=== PATIENT | female | born 1955 | race Caucasian/White ===

== ENCOUNTER → 2016-11-29 | Outpatient (CLI) | payer BC | END | disposition home or self-care (01) | LOC: MW.CHFP 09:44 | PROVIDERS: ATTEND Physician Assistant | DX: J32.0 Chronic maxillary sinusitis (principal) | CPT/HCPCS: 87070; 87205 ==

== ENCOUNTER 2017-10-08 15:15 | Emergency (ER) | payer BC ==
--- NOTE | 2017-10-08 15:42 | EDM.PDOC ---
ED HPI GENERAL MEDICAL PROBLEM - General Chief Complaint: Chest Pain Stated Complaint: CHEST PAIN Time Seen by Provider: 10/08/17 15:24 Source of Information: Reports: Patient History Limitations: Reports: No Limitations - History of Present Illness INITIAL COMMENTS - FREE TEXT/NARRATIVE: Presents to the ER reporting chest pain. The patient states that this morning when she got up she did not feel very good but she has been on prednisone for the last 10 days. She said that she feels like she has been "on speed" the last few days from taking it. It was prescribed to help resolve some nodules she had around her mouth after reaction to cosmetic fillers. Once she got to work she noticed some low sternal pain radiating to the epigastric area accompanied by mild nausea and lightheadedness. She was sweaty at the time but that resolved. She has a history of anxiety but that is well controlled with Pristiq. She occasionally takes lorazepam but has not needed to recently. Initially her pain was a 9 on the 1-10 scale but now it is down to about 4. No personal history of cardiac problems. Her mother and father both suffered from congestive heart failure and hypertension. She did have an episode of "inflammation in the zyphoid process" about 14 years ago. Mid-Sternal Chest Pain Score (Numeric/FACES): 6 - Related Data Allergies Allergy/AdvReac Type Severity Reaction Status Date / Time aspirin [From Percodan] Allergy Nausea and Verified 10/08/17 15:25 Vomiting oxycodone HCl [From Percodan] Allergy Nausea and Verified 10/08/17 15:25 Vomiting oxycodone terephthalate Allergy Nausea and Verified 10/08/17 15:25 [From Percodan] Vomiting Home Meds: Home Meds Desvenlafaxine [Pristiq] 50 mg PO ASDIRECTED 09/13/14 [History] Prednisone [IJD: Prednisone] 10/08/17 [History] Past Medical History Psychiatric History: Reports: Anxiety - Infectious Disease History Infectious Disease History: Reports: Chicken Pox, Measles, Mumps - Past Surgical History Dermatological Surgical History: Reports: Plastic Surgical Reconstruction/Repair Social & Family History - Family History Family Medical History: Noncontributory - Tobacco Use Smoking Status *Q: Never Smoker - Alcohol Use Days Per Week of Alcohol Use: 0 Number of Drinks Per Day: 0 Total Drinks Per Week: 0 - Recreational Drug Use Recreational Drug Use: No Drug Use in Last 12 Months: No ED ROS GENERAL - Review of Systems Review Of Systems: ROS reveals no pertinent complaints other than HPI. ED EXAM, GENERAL - Physical Exam Exam: See Below Exam Limited By: No Limitations General Appearance: Alert, No Apparent Distress Ears: Normal External Exam Nose: Normal Inspection Throat/Mouth: Normal Inspection Head: Atraumatic, Normocephalic Neck: Normal Inspection Respiratory/Chest: No Respiratory Distress, Lungs Clear, Normal Breath Sounds Cardiovascular: Normal Peripheral Pulses, Regular Rate, Rhythm, No Murmur GI/Abdominal: Normal Bowel Sounds, Soft, No Distention Extremities: Normal Inspection, Normal Range of Motion Neurological: Alert, Oriented Psychiatric: Normal Affect, Normal Mood Skin Exam: Warm, Dry, Intact, Normal Color, No Rash Lymphatic: No Adenopathy Course - Vital Signs Last Recorded V/S: Last Vital Signs Temp 37.0 C 10/08/17 15:22 Pulse 76 10/08/17 15:22 Resp 18 10/08/17 15:22 BP 120/75 10/08/17 15:22 Pulse Ox 98 10/08/17 15:22 - Orders/Labs/Meds Orders: Active Orders 24 hr Category Date Time Status EKG Documentation Completion [RC] STAT Care 10/08/17 15:35 Ordered Labs: Laboratory Tests 10/08/17 10/08/17 Range/Units 15:35 16:09 WBC 10.12 (4.0-11.0) K/uL RBC 4.26 L (4.30-5.90) M/uL Hgb 14.2 (12.0-16.0) g/dL Hct 40.7 (36.0-46.0) % MCV 95.5 (80.0-98.0) fL MCH 33.3 H (27.0-32.0) pg MCHC 34.9 (31.0-37.0) g/dL RDW Std Deviation 46.8 (28.0-62.0) fl RDW Coeff of Regan 14 (11.0-15.0) % Plt Count 196 (150-400) K/uL MPV 10.30 (7.40-12.00) fL Neut % (Auto) 90.2 H (48.0-80.0) % Lymph % (Auto) 4.7 L (16.0-40.0) % Warren % (Auto) 4.6 (0.0-15.0) % Eos % (Auto) 0.4 (0.0-7.0) % Baso % (Auto) 0.1 (0.0-1.5) % Neut # (Auto) 9.1 H (1.4-5.7) K/uL Lymph # (Auto) 0.5 L (0.6-2.4) K/uL Warren # (Auto) 0.5 (0.0-0.8) K/uL Eos # (Auto) 0.0 (0.0-0.7) K/uL Baso # (Auto) 0.0 (0.0-0.1) K/uL Nucleated RBC % 0.0 /100WBC Nucleated RBCs # 0 K/uL Sodium 136 (136-146) mmol/L Potassium 4.3 (3.5-5.1) mmol/L Chloride 103 (98-110) mmol/L Carbon Dioxide 26 (21-31) mmol/L BUN 16 (6.0-23.0) mg/dL Creatinine 0.8 (0.6-1.5) mg/dL Est Cr Clr Drug Dosing 60.31 mL/min Estimated GFR (MDRD) > 60.0 ml/min Glucose 116 H (60-110) mg/dL Calcium 8.9 (8.8-10.8) mg/dL Total Bilirubin 0.7 (0.1-1.5) mg/dL AST 21 (5-40) IU/L ALT 17 (8-54) IU/L Alkaline Phosphatase 47 (40-150) Troponin I < 0.10 (0.0-0.29) NG/ML Total Protein 5.7 L (6.0-8.0) g/dL Albumin 3.6 (3.4-4.8) g/dL Globulin 2.1 (2.0-3.5) g/dL Albumin/Globulin Ratio 1.7 (1.3-2.8) Meds: Medications Discontinued Medications Generic Name Dose Route Start Last Admin Trade Name Freq PRN Reason Stop Dose Admin Al Hydroxide/Mg Hydroxide 15 0 ml 10/08/17 17:06 10/08/17 17:18 ml/ Lidocaine HCl 5 ml PO 10/08/17 17:07 20 each ONETIME ONE Administration - Re-Assessments/Exams Free Text/Narrative Re-Assessment/Exam: 10/08/17 17:53 Patient's chest pain resolved without intervention while waiting in the ER. She did get a GI cocktail which cause some epigastric distress momentarily now resolved. Departure - Departure Time of Disposition: 17:54 Disposition: Home, Self-Care 01 Condition: Good Clinical Impression: Epigastric abdominal pain Referrals: Zayda Heath MD [Primary Care Provider] - Ayden Champion MD [Physician] - Forms: ED Department Discharge Additional Instructions: 1. Follow up with Dr. Champion 2. Return promptly for chest pain, shortness of breath, sweating or lightheadedness 3. Discontinue prednisone. - My Orders Last 24 Hours: My Active Orders 10/08/17 15:35 EKG Documentation Completion [RC] STAT - Assessment/Plan Last 24 Hours: My Active Orders 10/08/17 15:35 EKG Documentation Completion [RC] STAT
[2017-10-08 16:51] LABS: CHLORIDE,CL 103 mmol/L (98-110); SODIUM,NA 136 mmol/L (136-146)
[2017-10-08] MEDS ORDERED: Alum Hydrox/Mag Hydrox/Simeth 15 ML, Lidocaine 2% 5 ML PO ONE ×2 (17:06)
[2017-10-08 18:28] VITALS: BP 103/59
== END 2017-10-08 18:25 | disposition home or self-care (01) ==
LOC: MW.ED 15:15
DX: R10.13 Epigastric pain (principal); Z88.6 Allergy status to analgesic agent; Z88.5 Allergy status to narcotic agent
CPT/HCPCS: 80053; 84484; 85025; 99285; A9270; 99283

== ENCOUNTER 2020-07-08 04:43 | Emergency (ER) | payer MEDICARE, BC ==
[2020-07-08] MEDS ORDERED: Ciprofloxacin/Hydrocortisone Otic Susp 10 ML Bottle EARLF STA (05:21)
--- NOTE | 2020-07-08 05:26 | EDM.PDOC ---
ED HPI GENERAL MEDICAL PROBLEM - General Chief Complaint: ENT Problem Stated Complaint: LT EAR HURTS Time Seen by Provider: 07/08/20 04:53 - History of Present Illness INITIAL COMMENTS - FREE TEXT/NARRATIVE: History of present illness: [] The patient reports he had itching in her left ear where she is known to have psoriasis. Began 3 or 4 days ago. She began to scratch 3 or 4 days ago. She began to put peroxide in her ear. Patient got better and then starting over the last 24 hours or so she got worse. Now she has continuous itching and irritation and feels like she has injured her ear canal. She has no systemic signs of infection. Review of systems: As per history of present illness and below otherwise all systems reviewed and negative. Past medical history: As per history of present illness and as reviewed below otherwise noncontributory. Surgical history: As per history of present illness and as reviewed below otherwise noncontributory. Social history: No reported history of drug or alcohol abuse. Family history: As per history of present illness and as reviewed below otherwise noncontributory. Physical exam: Constitutional - well developed, well-nourished and in no acute distress HEENT -right ear canal and tympanic membrane are normal. Left tympanic membrane is normal. Left ear canal is irritated red and inflamed. Normocephalic, no evidence of trauma - external nose and mouth normal - no mass in neck and no JVD - mucosae moist EYES - full EOM, PERRL, no icterus - no evidence of inflammation, injection, or drainage Respiratory - no respiratory distress, equal bilateral expansion Musculoskeletal no gross deformity of long bones or joints - no tenderness, swelling or edema Neurologic - Alert and oriented times four - CN II-XII grossly intact - motor sensory and coordination symmetrically normal Psychiatric - appropriate mood and affect with normal thought content Hematologic - No petechiae or purpura - mucosa appropriate color and sclera not pale - normal nail bed color and refill Integument - no rash or evidence of trauma - normal turgor Diagnostics: [] Therapeutics: [] Impression: [] Plan: [] Definitive disposition and diagnosis as appropriate pending reevaluation and review of above. 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 Musculoskeletal History: Reports: None Neurological History: Reports: None Psychiatric History: Reports: Anxiety Endocrine/Metabolic History: Reports: Hyperthyroidism Other Endocrine/Metabolic History: Graves disease Dermatologic History: Reports: None - Infectious Disease History Infectious Disease History: Reports: Chicken Pox, Measles, Mumps - Past Surgical History Dermatological Surgical History: Reports: Plastic Surgical Reconstruction/Repair Social & Family History - Family History Family Medical History: No Pertinent Family History - Tobacco Use Tobacco Use Status *Q: Never Tobacco User - Caffeine Use Caffeine Use: Reports: Coffee - Recreational Drug Use Recreational Drug Use: No ED ROS GENERAL - Review of Systems Review Of Systems: Comprehensive ROS is negative, except as noted in HPI. ED EXAM, GENERAL - Physical Exam Exam: See Below Free Text/Narrative:: My physical exam is in the HPI Course - Vital Signs Last Recorded V/S: Last Vital Signs Temp 35.8 C L 07/08/20 05:06 Pulse 60 07/08/20 05:06 Resp 16 07/08/20 05:06 BP 125/69 07/08/20 05:06 Pulse Ox 95 07/08/20 05:06 - Orders/Labs/Meds Meds: Medications Discontinued Medications Generic Name Dose Route Start Last Admin Trade Name Jose David PRN Reason Stop Dose Admin Ciprofloxacin/Dexamethasone 1 ml 07/08/20 05:37 Ciprodex Otic Susp EARLF 07/08/20 05:38 NOW STA Ciprofloxacin/Hydrocortisone 1 ml 07/08/20 05:21 Cipro Hc Otic Susp EARLF 07/08/20 05:22 STAT STA Departure - Departure Time of Disposition: 05:39 Disposition: Home, Self-Care 01 Condition: Good Clinical Impression: Otitis externa - Discharge Information Instructions: Otitis Externa, [id number], Ear Drops, Adult, [id number] Referrals: Ayden Champion MD [Primary Care Provider] - Forms: ED Department Discharge Additional Instructions: Please put 4 drops in the affected ear twice a day for 7 days [facility] [address] [place] [address] [facility] [address] [place] [address] The following information is given to patients seen in the emergency department who are being discharged to home. This information is to outline your options for follow-up care. We provide all patients seen in our emergency department with a follow-up referral. The need for follow-up, as well as the timing and circumstances, are variable depending upon the specifics of your emergency department visit. If you don't have a primary care physician on staff, we will provide you with a referral. We always advise you to contact your personal physician following an emergency department visit to inform them of the circumstance of the visit and for follow-up with them and/or the need for any referrals to a consulting specialist. The emergency department will also refer you to a specialist when appropriate. This referral assures that you have the opportunity for follow-up care with a specialist. All of these measure are taken in an effort to provide you with optimal care, which includes your follow-up. Under all circumstances we always encourage you to contact your private physician who remains a resource for coordinating your care. When calling for follow-up care, please make the office aware that this follow-up is from your recent emergency room visit. If for any reason you are refused follow-up, please contact the [facility] Emergency Department at and asked to speak to the emergency department charge nurse. Sepsis Event Note (ED) - Evaluation Sepsis Screening Result: No Definite Risk - Focused Exam Vital Signs: Vital Signs Temp Pulse Resp BP Pulse Ox 07/08/20 05:06 35.8 C L 60 16 125/69 95
[2020-07-08] MEDS ORDERED: Ciprofloxacin/Dexamethasone 0.3-0.1% Otic Susp 7.5 ML Bottle EARLF STA (05:37)
[2020-07-08 05:42] VITALS: BP 108/67; PULSE 58
== END 2020-07-08 05:46 | disposition home or self-care (01) ==
LOC: MW.ED 04:43
DX: H60.92 Unspecified otitis externa, left ear (principal); E05.90 Thyrotoxicosis, unspecified without thyrotoxic crisis or storm; Z79.899 Other long term (current) drug therapy
CPT/HCPCS: 99282; A9270

== ENCOUNTER 2020-09-02 03:14 | Emergency (ER) | payer MEDICARE, BC ==
--- NOTE | 2020-09-02 03:36 | EDM.PDOC ---
ED HPI GENERAL MEDICAL PROBLEM - General Chief Complaint: General Stated Complaint: LEFT ARM TINGLING Time Seen by Provider: 09/02/20 03:26 - History of Present Illness INITIAL COMMENTS - FREE TEXT/NARRATIVE: History of present illness: [] Reports that starting the she began to have intermittent tingling in the left arm. It starts at the shoulder and goes down toward the forearm. She noticed it while she was exercising Saturday but she was able to continue exercising. She has it intermittently since. Nothing really makes it better nothing makes it worse. It comes on at rest or with activity. Activity does not cause her any tingling nor does it cause her any chest pain shortness of breath nausea diaphoresis or other symptoms. The patient has no history of arthritis. She is a non-smoker who takes no supplemental hormones. The patient had a family history of heart attack and stroke in the mother but the mother was a former smoker and had these things in her 80s. Review of systems: As per history of present illness and below otherwise all systems reviewed and negative. Past medical history: As per history of present illness and as reviewed below otherwise noncontributory. Surgical history: As per history of present illness and as reviewed below otherwise noncontributory. Social history: No reported history of drug or alcohol abuse. Family history: As per history of present illness and as reviewed below otherwise noncontributory. Physical exam: Constitutional - well developed, well-nourished and in no acute distress HEENT - normocephalic, no evidence of trauma - external nose and mouth normal - no mass in neck and no JVD - mucosae moist EYES - full EOM, PERRL, no icterus - no evidence of inflammation, injection, or drainage Respiratory - no respiratory distress, equal bilateral expansion, lungs clear to auscultation and no abnormal lung sounds Cardiovascular - Regular Rhythm with S1 and S2 appreciated and no murmur, gallop or rub. GI - abdomen soft without distension or organomegaly - normal bowel sounds - no guard or rebound Musculoskeletal no gross deformity of long bones or joints - no tenderness, swelling or edema Neurologic -ulnar and radial strength were intact and symmetrical. Sensation in those areas were intact and she felt like his little diminished in the left side. The DTR symmetric at the biceps. S exam is negative and my standard customary neurologic exam is negative. Alert and oriented times four - CN II- XII grossly intact - motor sensory and coordination symmetrically normal Psychiatric - appropriate mood and affect with normal thought content Hematologic - No petechiae or purpura - mucosa appropriate color and sclera not pale - normal nail bed color and refill Integument - no rash or evidence of trauma - normal turgor Diagnostics: [] Therapeutics: [] Impression: [] Plan: [] Definitive disposition and diagnosis as appropriate pending reevaluation and review of above. left arm Pain Score (Numeric/FACES): 1 - Related Data Allergies Allergy/AdvReac Type Severity Reaction Status Date / Time No Known Allergies Allergy Verified 09/02/20 03:25 Home Meds: Home Meds Nystatin 1 dose PO DAILY 07/08/20 [History] methIMAzole [Methimazole] 5 mg PO DAILY 07/08/20 [History] predniSONE [Prednisone] 60 mg PO DAILY 6 Days #18 tablet 09/02/20 [Rx] Past Medical History HEENT History: Reports: None Cardiovascular History: Reports: None Respiratory History: Reports: None Gastrointestinal History: Reports: None Genitourinary History: Reports: None CIGAR MAKER History: Reports: None Musculoskeletal History: Reports: None Neurological History: Reports: None Psychiatric History: Reports: Anxiety Endocrine/Metabolic History: Reports: Hyperthyroidism Other Endocrine/Metabolic History: Graves disease Dermatologic History: Reports: None - Infectious Disease History Infectious Disease History: Reports: Chicken Pox, Measles, Mumps - Past Surgical History Dermatological Surgical History: Reports: Plastic Surgical Reconstruction/Repair Social & Family History - Family History Family Medical History: No Pertinent Family History - Caffeine Use Caffeine Use: Reports: Coffee ED ROS GENERAL - Review of Systems Review Of Systems: Comprehensive ROS is negative, except as noted in HPI. ED EXAM, GENERAL - Physical Exam Exam: See Below Free Text/Narrative:: My physical exam is in the HPI #1 Interpretation EKG Interpretation Comments: G done at 3:39 AM sinus rhythm heart rate 69 [place] 170 QT 431 [place] XIV Q waves in the early precordium normal ST and T compared to EKG from 2018 no change impression no acute injury Course - Vital Signs Last Recorded V/S: Last Vital Signs Temp 36.0 C L 09/02/20 03:22 Pulse 71 09/02/20 03:22 Resp 16 09/02/20 03:22 BP 134/68 09/02/20 03:22 Pulse Ox 96 09/02/20 03:22 - Orders/Labs/Meds Orders: Active Orders 24 hr Category Date Time Status EKG 12 Lead [EKG Documentation Completion] [RC] STAT Care 09/02/20 03:36 Active Labs: Laboratory Tests 09/02/20 Range/Units 03:50 Troponin I < 0.050 (0.000-0.056) ng/mL Meds: Medications Discontinued Medications Generic Name Dose Route Start Last Admin Trade Name Jose David PRN Reason Stop Dose Admin Prednisone 60 mg 09/02/20 03:51 09/02/20 03:57 Prednisone PO 09/02/20 03:52 60 mg ONETIME ONE Administration Departure - Departure Time of Disposition: 04:27 Disposition: Home, Self-Care 01 Condition: Good Clinical Impression: Paresthesia of left arm - Discharge Information Prescriptions: predniSONE [Prednisone] 60 mg PO DAILY 6 Days #18 tablet Instructions: Paresthesia, [id number] Referrals: Ayden Champion MD [Primary Care Provider] - Forms: ED Department Discharge Additional Instructions: [facility] - Neurology [address], [address] [place] [address] The following information is given to patients seen in the emergency department who are being discharged to home. This information is to outline your options for follow-up care. We provide all patients seen in our emergency department with a follow-up referral. The need for follow-up, as well as the timing and circumstances, are variable depending upon the specifics of your emergency department visit. If you don't have a primary care physician on staff, we will provide you with a referral. We always advise you to contact your personal physician following an emergency department visit to inform them of the circumstance of the visit and for follow-up with them and/or the need for any referrals to a consulting specialist. The emergency department will also refer you to a specialist when appropriate. This referral assures that you have the opportunity for follow-up care with a specialist. All of these measure are taken in an effort to provide you with optimal care, which includes your follow-up. Under all circumstances we always encourage you to contact your private physician who remains a resource for coordinating your care. When calling for follow-up care, please make the office aware that this follow-up is from your recent emergency room visit. If for any reason you are refused follow-up, please contact the [facility] Emergency Department at and asked to speak to the emergency department charge nurse. Sepsis Event Note (ED) - Evaluation Sepsis Screening Result: No Definite Risk - Focused Exam Vital Signs: Vital Signs Temp Pulse Resp BP Pulse Ox 09/02/20 03:22 36.0 C L 71 16 134/68 96 - My Orders Last 24 Hours: My Active Orders 09/02/20 03:36 EKG 12 Lead [EKG Documentation Completion] [RC] STAT - Assessment/Plan Last 24 Hours: My Active Orders 09/02/20 03:36 EKG 12 Lead [EKG Documentation Completion] [RC] STAT
[2020-09-02] MEDS ORDERED: predniSONE 20 MG Tab PO ONE (03:51)
[2020-09-02 04:32] VITALS: BP 116/63; PULSE 58
== END 2020-09-02 04:31 | disposition home or self-care (01) ==
LOC: MW.ED 03:14
DX: R20.2 Paresthesia of skin (principal)
CPT/HCPCS: 36415; 84484; 93005; 99284; A9270; 93010; 99282

== ENCOUNTER 2022-10-23 18:07 | Emergency (ER) | payer MEDICARE, BC | END 2022-10-23 19:48 | disposition left against medical advice (07) | LOC: MW.ED 18:07 → MERGE 18:07 → MW.ED 19:48 | DX: Z53.21 Procedure and treatment not carried out due to patient leaving prior to being seen by health care provider (principal) ==

== ENCOUNTER 2022-11-03 19:33 | Emergency (ER) | payer MEDICARE, BC | END 2022-11-03 20:58 | disposition home or self-care (01) | LOC: MW.ED 19:33 | DX: H60.501 Unspecified acute noninfective otitis externa, right ear (principal); G51.9 Disorder of facial nerve, unspecified | CPT/HCPCS: 99283 ==

== ENCOUNTER 2024-07-05 15:03 | Emergency (ER) | payer MEDICARE, BC ==
[2024-07-05] MEDS: Ketorolac 30 MG/ML SDV IVPUSH ONE (15:59)
[2024-07-05] MEDS: Metoclopramide 10 MG/2 ML SDV IVPUSH ONE (15:59)
== END 2024-07-05 17:05 | disposition home or self-care (01) ==
LOC: MW.ED 15:03
DX: R51.9 Headache, unspecified (principal)
CPT/HCPCS: 70450; 96374; 96375; 99284; J1885; J2765

== ENCOUNTER 2024-07-25 07:29 | Emergency (ER) | payer MEDICARE, BC ==
[2024-07-25] MEDS: diphenhydrAMINE 50 MG/ML SDV IM ONE (08:48)
[2024-07-25] MEDS: Ketorolac 30 MG/ML SDV IVPUSH ONE (08:48)
[2024-07-25] MEDS: Prochlorperazine 10 MG/2 ML SDV IM ONE (08:48)
== END 2024-07-25 09:49 | disposition home or self-care (01) ==
LOC: MW.ED 07:29
DX: R51.9 Headache, unspecified (principal); Z75.8 Other problems related to medical facilities and other health care; Z79.899 Other long term (current) drug therapy
CPT/HCPCS: 96372; 96374; 99283; J0780; J1200; J1885

== ENCOUNTER 2024-09-03 14:50 | Emergency (ER) | payer MEDICARE, BC | END 2024-09-03 15:09 | disposition left against medical advice (07) | LOC: MW.ED 14:50 | DX: Z53.21 Procedure and treatment not carried out due to patient leaving prior to being seen by health care provider (principal) ==

== ENCOUNTER 2025-06-17 02:44 | Emergency (ER) | payer MEDICARE, BC ==
[2025-06-17 03:37] LABS: BASOPHILS ABSOLUTE AUTO 0.02 K/uL (0.00-0.20); BASOPHILS PERCENT AUTO 0.5 % (0.0-1.0); EOSINOPHILS ABSOLUTE AUTO 0.15 K/uL (0.00-0.45); EOSINOPHILS PERCENT AUTO 3.5 % (0.0-6.0); IMMATURE GRAN ABSOLUTE AUTO 0.01 K/uL (0.00-0.05); IMMATURE GRAN PERCENT AUTO 0.2 % (0.0-0.4); LYMPHOCYTES ABSOLUTE AUTO 1.41 K/uL (1.00-4.80); LYMPHOCYTES PERCENT AUTO 32.6 % (24.0-44.0); MEAN PLATELET VOLUME 9.2 fL (9.4-12.3); MONOCYTES ABSOLUTE AUTO 0.45 K/uL (0.00-0.80); MONOCYTES PERCENT AUTO 10.4 % (0.0-8.0); NEUTROPHILS ABSOLUTE AUTO 2.29 K/uL (1.80-7.70); NEUTROPHILS PERCENT AUTO 52.8 % (41.0-71.0); NRBC ABSOLUTE 0.00 K/uL (0.00-0.02); NRBC PERCENT 0.0 /100WBC (0.0-0.2); PLATELET COUNT,PLT 178 K/uL (150-400); RED BLOOD CELL COUNT 4.11 M/uL (4.10-5.30); WHITE BLOOD CELL COUNT,WBC 4.33 K/uL (3.9-11.3)
[2025-06-17 04:00] LABS: A/G RATIO 1.2 (0.9-1.6); ALANINE AMINOTRANSFERASE,ALT 33.0 IU/L (14-63); ASPARTATE AMNIOTRANSFERASE,AST 26.0 IU/L (15-37); BILIRUBIN TOTAL 0.3 mg/dL (0.2-1.0); BLOOD UREA NITROGEN,BUN 16.0 mg/dL (7.0-18.0); CARBON DIOXIDE,CO2 30.0 mmol/L (21.0-32.0); CHLORIDE,CL 109.0 mmol/L (98-107); CREATININE 0.9 mg/dL (0.6-1.0); EST CRCL DRUG DOSING (CG) 48.11 mL/min; GLUCOSE RANDOM 96.0 mg/dL (74-106); POTASSIUM,K 4.7 mmol/L (3.5-5.1); PROTEIN TOTAL,TP 6.5 g/dL (6.4-8.2); SODIUM,NA 143.0 mmol/L (136-145)
[2025-06-17 04:02] LABS: ESTIMATED GFR 69.0 mL/min (>60)
[2025-06-17] MEDS ORDERED: 50% Dextrose in Water 50 ML Syringe IVPUSH PRN (05:09)
[2025-06-17] MEDS ORDERED: Insulin Regular, Human 100 Units/ML 10 ML Vial IVPUSH ONE (05:09)
== END 2025-06-17 05:23 | disposition home or self-care (01) ==
LOC: MW.ED 02:44
DX: R20.2 Paresthesia of skin (principal)
CPT/HCPCS: 36415; 70450; 70450-26; 70486; 70486-26; 80053; 83735; 84484; 85025; 93005; 93010; 99283; 99284

== ENCOUNTER 2025-07-22 04:57 | Emergency (ER) | payer MEDICARE, BC ==
[2025-07-22] MEDS: Ketorolac 30 MG/ML SDV IVPUSH ONE (05:19)
[2025-07-22 05:39] LABS: BASOPHILS ABSOLUTE AUTO 0.05 K/uL (0.00-0.20); BASOPHILS PERCENT AUTO 1.2 % (0.0-1.0); EOSINOPHILS ABSOLUTE AUTO 0.15 K/uL (0.00-0.45); EOSINOPHILS PERCENT AUTO 3.5 % (0.0-6.0); IMMATURE GRAN ABSOLUTE AUTO 0.01 K/uL (0.00-0.05); IMMATURE GRAN PERCENT AUTO 0.2 % (0.0-0.4); LYMPHOCYTES ABSOLUTE AUTO 1.60 K/uL (1.00-4.80); LYMPHOCYTES PERCENT AUTO 37.1 % (24.0-44.0); MEAN PLATELET VOLUME 9.4 fL (9.4-12.3); MONOCYTES ABSOLUTE AUTO 0.33 K/uL (0.00-0.80); MONOCYTES PERCENT AUTO 7.7 % (0.0-8.0); NEUTROPHILS ABSOLUTE AUTO 2.17 K/uL (1.80-7.70); NEUTROPHILS PERCENT AUTO 50.3 % (41.0-71.0); NRBC ABSOLUTE 0.00 K/uL (0.00-0.02); NRBC PERCENT 0.0 /100WBC (0.0-0.2); PLATELET COUNT,PLT 202 K/uL (150-400); RED BLOOD CELL COUNT 4.25 M/uL (4.10-5.30); WHITE BLOOD CELL COUNT,WBC 4.31 K/uL (3.9-11.3)
[2025-07-22 06:18] LABS: BLOOD UREA NITROGEN,BUN 13 mg/dL (7.0-18.0); CARBON DIOXIDE,CO2 29.0 mmol/L (21.0-32.0); CHLORIDE,CL 105 mmol/L (98-107); CREATININE 0.8 mg/dL (0.6-1.0); EST CRCL DRUG DOSING (CG) 54.13 mL/min; GLUCOSE RANDOM 92 mg/dL (74-106); POTASSIUM,K 4.3 mmol/L (3.5-5.1); SODIUM,NA 142 mmol/L (136-145); TSH ULTRASENSITIVE 0.93 uIU/mL (0.36-3.74)
[2025-07-22 06:22] LABS: ESTIMATED GFR 79 mL/min (>60)
== END 2025-07-22 07:17 | disposition home or self-care (01) ==
LOC: MW.ED 04:57
DX: K08.89 Other specified disorders of teeth and supporting structures (principal); R00.2 Palpitations; Z79.899 Other long term (current) drug therapy
CPT/HCPCS: 36415; 80048; 84443; 84484; 85025; 93005; 99285